=== PATIENT | male | born 1970 | race Caucasian/White ===

== ENCOUNTER 2025-08-10 09:11 | Inpatient (IN) | payer OTHER ==
[~2025-08-10] VITALS: Ht 175.3 cm; Wt 79.0 kg
[2025-08-10 09:29] VITALS: PULSE 76; RESP 14; O2SAT 97
--- NOTE | 2025-08-10 09:29 | ED.PDOC ---
History of Present Illness HPI Comments 54-year-old male presents to the ED via EMS for an evaluation of multiple complaints. Patient is coming from the skilled nursing center, in which he has been at for the past 2 weeks. Patient reports that he developed some tremors x1 week in his associated with generalized symptoms that include some abdominal pain, shortness of breath, nausea, visual and auditory hallucinations. EMS reports that patient thought he was on the top bunk today, states he jumped off but correctional supervisor lieutenant states that he was found on the floor in the he was actually sleeping on the bottom bunk. Patient was started on Keppra yesterday at the facility due to his tremors but has no known seizures in the past. Patient admits to previous history of alcohol and possible drug use, states since he has been held at the skilled nursing center he has not had any substance or alcohol. At this time patient is alert and oriented x4. Chief Complaint: Tremors Time Seen by MD: 09:17 Reviewed Notes: Nurses Notes, Coil Maker Notes, Medications, Allergies Allergies: Coded Allergies: NO KNOWN ALLERGIES (Unverified , 08/10/25) Information Source: Patient, Law Enforcement, Emergency Med Personnel Mode of Arrival: EMS Timing: Weeks (1) Past Medical History PAST MEDICAL HISTORY: Denies Surgical History: Denies all surgeries Family History Family History: Reviewed,noncontributory to illness Social History Smoker: Non-Smoker Alcohol: Heavy Drugs: Unknown Lives In: Other (skilled nursing center ) Constitutional: reports: malaise; denies: chills, diaphoresis, fatigue, fever, sweats, weakness, others EENTM: denies: blurred vision, double vision, ear bleeding, ear discharge, ear drainage, ear pain, ear ringing, eye pain, eye redness, hearing loss, mouth pain, mouth swelling, nasal discharge, nose bleeding, nose congestion, nose pain, photophobia, tearing, throat pain, throat swelling, voice changes, others Respiratory: denies: cough, hemoptysis, orthopnea, SOB at rest, shortness of breath, SOB with excertion, stridor, wheezing, others Cardiovascular: denies: chest pain, dizzy spells, diaphoresis, Dyspnea on exertion, edema, irregular heart beat, left arm pain, lightheadedness, palpi tations, PND, syncope, others Gastrointestinal: reports: abdominal pain, nausea; denies: abdomen distended, blood streaked bowels, constipated, diarrhea, dysphagia, difficulty swallowing, hematemesis, melena, poor appetite, poor fluid intake, rectal bleeding, rectal pain, vomiting, others Genitourinary: denies: burning, dysuria, flank pain, frequency, hematuria, incontinence, penile discharge, penile sore, pain, testicle pain, testicle swelling, urgency, others Neurological: reports: tremors; denies: dizziness, fainting, headache, left sided numbness, left sided weakness, numbness, paresthesia, pre-existing deficit, right sided numbness, right sided weakness, seizure, speech problems, tingling, weakness, others Musculoskeletal: denies: back pain, gout, joint pain, joint swelling, muscle pain, muscle stiffness, neck pain, others Integumetry: denies: bruises, change in color, change in hair/nails, dryness, laceration, lesions, lumps, rash, wounds, others Allergic/Immunocompromised: denies: Difficulty Healing, Frequent Infections, Hives, Itching, others Hematologic/Lymphatic: denies: anemia, blood clots, easy bleeding, easy bruising, swollen glands, others Endocrine: denies: excessive hunger, excessive sweating, excessive thirst, excessive urination, flushing, intolerance to cold, intolerance to heat, unexplained weight gain, unexplained weight loss, others Psychiatric: denies: anxiety, bipolar disorder, depression, hopeless, panic disorder, schizophrenia, sleepless, suicidal, others All Other Systems: Reviewed and Negative Physical Exam General Appearance: Moderate Distress HEENT: Normal ENT Inspection, Pharynx Normal, TMs Normal Neck: Full Range of Motion, Non-Tender, Normal, Normal Inspection Respiratory: Chest Non-Tender, Lungs Clear, No Accessory Muscle Use, No Respiratory Distress, Normal Breath Sounds Cardiovascular: No Edema, No JVD, No Murmur, No Gallop, Normal Peripheral Pulses, Regular Rate/Rhythm Breast Exam: Deferred Gastrointestinal: No Organomegaly, Non Tender, No Pulsatile Mass, Normal Bowel Sounds, Soft Genitalia: Deferred Pelvic: Deferred Rectal: Deferred Extremities: No calf tenderness, Normal capillary refill, Normal inspection, Normal range of motion, Non-tender, No pedal edema Musculoskeletal : Apperance: Normal Neurologic: Alert, ranch hand II-XII nml as Tested, No Motor Deficits, Normal Affect, Normal Mood, No Sensory Deficits Cerebellar Function: NOT DONE Reflexes: NOT DONE Skin: Dry, Normal Color, Warm Peripheral Pulses: 3+ Radial (R), 3+ Radial (L) Lymphatic: No Adenopathy Was a procedure done? Was a procedure done?: No Differential Dx Considerations may include: Alcohol withdrawal, substance withdrawal, dehydration, electrolyte imbalance, thiamine deficiency X-Ray, Labs, Meds, VS Vital Signs Date Time Temp Pulse Resp B/P (MAP) Pulse Ox O2 Delivery O2 Flow Rate FiO2 08/10/25 11:45 98.1 59 16 130/82 (98) 98 98.1 08/10/25 09:29 76 14 97 Nasal Cannula* 2 28 08/10/25 09:29 98.6 76 14 126/73 (90) 96 98.6 08/10/25 09:16 98.8 74 18 125/82 99 98.8 Lab Test 08/10/25 10:20 Range/Units White Blood Count 5.4 4.4-10.8 10^3/uL Red Blood Count 4.31 L 4.5-5.90 10^6/uL Hemoglobin 14.1 13.5-17.5 g/dL Hematocrit 39.8 L 41.0-53.0 % Mean Corpuscular Volume 92.2 80.0-100.0 fL Mean Corpuscular Hemoglobin 32.7 H 28.0-32.0 pg Mean Corpuscular Hemoglobin Concent 35.5 32.0-36.0 g/dL Red Cell Distribution Width 21.2 H 11.8-14.3 % Platelet Count 54 L 140-450 10^3/uL Mean Platelet Volume 7.7 6.9-10.8 fL Neutrophils (%) (Auto) 84.4 H 37.0-80.0 % Lymphocytes (%) (Auto) 7.2 L 10.0-50.0 % Monocytes (%) (Auto) 7.9 0.0-12.0 % Eosinophils (%) (Auto) 0.0 0.0-7.0 % Basophils (%) (Auto) 0.5 0.0-2.0 % Neutrophils # (Auto) 4.5 1.6-8.6 10 ^3/uL Lymphocytes # (Auto) 0.4 0.4-5.4 10 ^3/uL Monocytes # (Auto) 0.4 0-1.3 10 ^3/uL Eosinophils # (Auto) 0 0-0.8 10 ^3/uL Basophils # (Auto) 0 0-0.2 10 ^3/uL Nucleated Red Blood Cells 0.1 % Sodium Level 137 136-145 mmol/L Potassium Level 4.1 3.5-5.1 mmol/L Chloride Level 100 98-107 mmol/L Carbon Dioxide Level 26 20-31 mmol/L Anion Gap 11 5-15 Blood Urea Nitrogen 13 9-23 mg/dL Creatinine 0.82 0.700-1.30 mg/dL Glomerular Filtration Rate Calc 104 >90 mL/min BUN/Creatinine Ratio 15.9 10.0-20.0 Serum Glucose 105 74-106 mg/dL Calcium Level 9.7 8.7-10.4 mg/dL Current Medications Medications (Trade) Dose Ordered Sig/Hannah Route Start Time Stop Time Status Last Admin Sodium Chloride 1,000 ml @ 1,000 mls/hr Q1H ONCE IV 08/10/25 10:15 08/10/25 11:14 DC 08/10/25 11:27 Sodium Chloride 1,000 ml @ 150 mls/hr Q6H40M ONCE IV 08/10/25 10:15 08/10/25 16:54 08/10/25 12:34 Lorazepam (Ativan Inj) 1 mg ONCE ONCE IV 08/10/25 10:15 08/10/25 10:16 DC 08/10/25 11:27 Patient alert. Came in because of shaking. Alcohol withdrawal. Vitals stable. Establish intravenous access. Was given fluids. Was given Ativan. WBC within normal limits. Placed on oxygen. Explained to the patient. Continue monitoring. Time of 1ST Reevaluation: 09:27 Reevaluation 1ST: Unchanged Patient Education/Counseling: Diagnosis, Treatment, Prognosis Family Education/Counseling: No Family Present SEPSIS Sepsis Screen Date sepsis recognized/suspect: Aug 10, 2025 Time Sepsis recognized/suspect: 920 Recent Procedure: No On Antibiotic Therapy: No Respiratory Rate >20: No Heart Rate >90: No Temp<36 C (96.8 F) or >38.3 C: No SBP <90 or MAP <65 mmHG: No New Acute Mental Status Change: No Is the patient on CPAP, BIPAP,: No Physician Orders Sodium Chloride 0.9% (08/10/25 10:15) Vital Signs Date Time Temp Pulse Resp B/P (MAP) Pulse Ox O2 Delivery O2 Flow Rate FiO2 08/10/25 11:45 98.1 59 16 130/82 (98) 98 98.1 08/10/25 09:29 76 14 97 Nasal Cannula* 2 08/10/25 09:29 98.6 76 14 126/73 (90) 96 98.6 08/10/25 09:16 98.8 74 18 125/82 99 98.8 Laboratory Tests Test 08/10/25 10:20 White Blood Count 5.4 10^3/uL (4.4-10.8) Medications Medications Dose Ordered Sig/Hannah Route Start Time Stop Time Status Last Admin Dose Admin Lorazepam 1 mg ONCE ONCE IV 08/10/25 10:15 08/10/25 10:16 DC 08/10/25 11:27 Sodium Chloride 1,000 ml @ 150 mls/hr Q6H40M ONCE IV 08/10/25 10:15 08/10/25 16:54 08/10/25 12:34 Sodium Chloride 1,000 ml @ 1,000 mls/hr Q1H ONCE IV 08/10/25 10:15 08/10/25 11:14 DC 08/10/25 11:27 Departure 1 Departure Time of Disposition: 14:22 Impression: Primary Impression: Alcohol withdrawal Qualified Codes: F10.930 - Alcohol use, unspecified with withdrawal, uncom plicated Disposition: ADMITTED INPATIENT Admit to: Med Surg Condition: Guarded Critical Care Note Critical Care Time?: Yes (90 min-critical care time only) Stability Stability form required: No I personally scribed for REID BLACKBURN MD ([email or web address]) on 08/10/25 at 09:29. Electronically submitted by Christin Lopez ([facility]). REID BLACKBURN MD Aug 10, 2025 09:29
[2025-08-10 10:48] LABS: Hematocrit 39.8 % (41.0-53.0); Hemoglobin 14.1 g/dL (13.5-17.5); Mean Corpuscular Hemoglobin 32.7 pg (28.0-32.0); Mean Corpuscular Volume 92.2 fL (80.0-100.0); Nucleated Red Blood Cells % 0.1 %
[2025-08-10 11:02] LABS: Chloride 100 mmol/L (98-107); Potassium 4.1 mmol/L (3.5-5.1); Sodium 137 mmol/L (136-145)
[2025-08-10 11:03] LABS: Anion Gap 11 (5-15); Calcium 9.7 mg/dL (8.7-10.4); Carbon Dioxide 26 mmol/L (20-31)
[2025-08-10 11:08] LABS: BUN/Creatinine Ratio 15.9 (10.0-20.0); Blood Urea Nitrogen 13 mg/dL (9-23); Glucose 105 mg/dL (74-106)
[2025-08-10] MEDS: SODIUM CHLORIDE 0.9% 1,000 ML IV ONE ×4 (11:27→16:35)
[2025-08-10] MEDS: LORazepam 2MG/ML-1ML VIAL IV ONE (11:27)
[2025-08-10] MEDS ORDERED: ONDANSETRON HCL 4 MG/2 ML VIAL IV PRN (16:00)
[2025-08-10] MEDS ORDERED: DOCUSATE SOD 100 MG CAP PO PRN (16:00)
[2025-08-10] MEDS ORDERED: ACETAMINOPHEN 325 MG TAB PO PRN (16:00)
[2025-08-10] MEDS: THIAMINE HCL 100 MG TAB PO ONE (16:34)
[2025-08-10] MEDS: FOLIC ACID 1 MG TAB PO ONE (16:34)
[2025-08-10] MEDS: MULTIPLE VITAMINS W/ MINERALS TAB PO ONE (16:34)
[2025-08-10] MEDS: HYDROcodone-ACET 5/325MG TAB PO PRN (17:20)
--- NOTE | 2025-08-10 17:41 | DVHHP2 ---
History of Present Illness Reason for Visit: Tremors History of Present Illness Gamaliel Bolanos is a 54-year-old male with unclear past medical history, he denies any past medical history or surgical history. It is difficult to evaluate if patient is altered or just refusing to answer questions. He has been at the alf center for 2 weeks. He was brought to the hospital due to tremors, shortness of breath, abdominal pain, and hallucinations. Patient can remember that he was started on a seizure medication, but does not know what one. Past Surgical History: None ALCOHOL: heavy Lives: Other ([facility]) Review of Systems Constitutional: No: Fever, Chills, Sweats, Weakness, Malaise, Other Eyes: No: Pain, Vision change, Conjunctivae inflammation, Eyelid inflammation, Other, Redness ENT: No: Ear pain, Ear discharge, Nose pain, Nose discharge, Nose congestion, Mouth pain, Mouth swelling, Throat pain, Throat swelling, Other Respiratory: No: Cough, Dry, Shortness of breath, SOB with excertion, Wheezing, Hemoptysis, Pleuritic Pain, Sputum, Wheezing, Other Cardiovascular: No: Chest Pain, Palpitations, Orthopnea, Paroxysmal Noc. Dyspnea, Edema, Lt Headedness, Other Gastrointestinal: No: Nausea, Vomiting, Abdominal Pain, Diarrhea, Constipation, Melena, Hematochezia, Other Genitourinary: No Dysuria, No Frequency, No Incontinence, No Hematuria, No Retention, No Other Musculoskeletal: No: other, neck pain, shoulder pain, arm pain, back pain, hand pain, leg pain, foot pain Skin: No: Rash, Lesions, Jaundice, Bruising, Other Neurological: Weakness, Incoordination, Other (tremors); No: Numbness, Change in speech, Confusion, Seizures Allergies: Coded Allergies: NO KNOWN ALLERGIES (Unverified , 08/10/25) Medications Current Medications Medications Dose Ordered Sig/Hannah Route Start Time Stop Time Status Last Admin Dose Admin Acetaminophen/ Hydrocodone Bitart 1 tab Q4HP PRN PO 08/10/25 16:00 Ondansetron HCl 4 mg Q4HP PRN IV 08/10/25 16:00 Docusate Sodium 100 mg BIDPRN PRN PO 08/10/25 16:00 Enoxaparin Sodium 40 mg DAILY SC 08/11/25 10:00 UNV Acetaminophen 650 mg Q6HP PRN PO 08/10/25 16:00 Chlordiazepoxide HCl 50 mg Q8H PO 08/10/25 16:00 08/11/25 08:01 Chlordiazepoxide HCl 50 mg Q12HR PO 08/11/25 10:00 08/11/25 22:01 Chlordiazepoxide HCl 25 mg Q12HR PO 08/12/25 10:00 08/12/25 22:01 Chlordiazepoxide HCl 25 mg QAM PO 08/13/25 07:00 08/13/25 07:01 Thiamine HCl 100 mg DAILY PO 08/11/25 10:00 Multivitamins/ Minerals 1 tab DAILY PO 08/11/25 10:00 Folic Acid 1 mg DAILY PO 08/11/25 10:00 Exam Vital Signs Vital Signs Date Time Temp Pulse Resp B/P (MAP) Pulse Ox O2 Delivery O2 Flow Rate FiO2 08/10/25 14:59 98.4 66 18 137/80 (99) 94 98.4 08/10/25 09:29 Nasal Cannula* 2 28 General Appearance: Alert, Other (Oriented x 2, ) HEENT: Atraumatic, PERRLA Respiratory: Clear to auscultation, Normal air movement Cardiovascular: Regular rate, Normal S1, Normal S2, No murmurs Abdominal: Normal bowel sounds, Soft, No tenderness Extremities: No clubbing, No cyanosis, No edema, Other (tremors) Skin: No breakdown (left wrist abrasion) Neuro: Other Psych/Mental Status: Other (Appears agitated, unclear if he is altered or unwilling to answer questions) Labs/Xrays Labs Test 08/10/25 10:20 Range/Units White Blood Count 5.4 4.4-10.8 10^3/uL Red Blood Count 4.31 L 4.5-5.90 10^6/uL Hemoglobin 14.1 13.5-17.5 g/dL Hematocrit 39.8 L 41.0-53.0 % Mean Corpuscular Volume 92.2 80.0-100.0 fL Mean Corpuscular Hemoglobin 32.7 H 28.0-32.0 pg Mean Corpuscular Hemoglobin Concent 35.5 32.0-36.0 g/dL Red Cell Distribution Width 21.2 H 11.8-14.3 % Platelet Count 54 L 140-450 10^3/uL Mean Platelet Volume 7.7 6.9-10.8 fL Neutrophils (%) (Auto) 84.4 H 37.0-80.0 % Lymphocytes (%) (Auto) 7.2 L 10.0-50.0 % Monocytes (%) (Auto) 7.9 0.0-12.0 % Eosinophils (%) (Auto) 0.0 0.0-7.0 % Basophils (%) (Auto) 0.5 0.0-2.0 % Neutrophils # (Auto) 4.5 1.6-8.6 10 ^3/uL Lymphocytes # (Auto) 0.4 0.4-5.4 10 ^3/uL Monocytes # (Auto) 0.4 0-1.3 10 ^3/uL Eosinophils # (Auto) 0 0-0.8 10 ^3/uL Basophils # (Auto) 0 0-0.2 10 ^3/uL Nucleated Red Blood Cells 0.1 % Sodium Level 137 136-145 mmol/L Potassium Level 4.1 3.5-5.1 mmol/L Chloride Level 100 98-107 mmol/L Carbon Dioxide Level 26 20-31 mmol/L Anion Gap 11 5-15 Blood Urea Nitrogen 13 9-23 mg/dL Creatinine 0.82 0.700-1.30 mg/dL Glomerular Filtration Rate Calc 104 >90 mL/min BUN/Creatinine Ratio 15.9 10.0-20.0 Serum Glucose 105 74-106 mg/dL Calcium Level 9.7 8.7-10.4 mg/dL SEPSIS Sepsis Screen Date sepsis recognized/suspect: Aug 10, 2025 Time Sepsis recognized/suspect: 928 Recent Procedure: No On Antibiotic Therapy: No Respiratory Rate >20: No Heart Rate >90: No Temp<36 C (96.8 F) or >38.3 C: No SBP <90 or MAP <65 mmHG: No New Acute Mental Status Change: No Is the patient on CPAP, BIPAP,: No Physician Orders Sodium Chloride 0.9% (08/10/25 10:15) Admit (08/10/25 16:00) Code Status (08/10/25 16:00) Hydrocodone-Acet 5/325mg Tab (Stigler 5/32 (08/10/25 16:00) Ondansetron Hcl (Zofran) (08/10/25 16:00) Docusate Sodium Capsule (Colace Capsule) (08/10/25 16:00) Enoxaparin Sodium (Lovenox) (08/11/25 10:00) Complete Blood Count (08/11/25 04:00) Comprehensive Metabolic Panel (08/11/25 04:00) Condition: Serious (08/10/25 16:00) Acetaminophen Tablet (Tylenol Tablet) (08/10/25 16:00) Chlordiazepoxide Hcl Capsule (Librium Ca (08/10/25 16:00) Chlordiazepoxide Hcl Capsule (Librium Ca (08/11/25 10:00) Chlordiazepoxide Hcl Capsule (Librium Ca (08/12/25 10:00) Chlordiazepoxide Hcl Capsule (Librium Ca (08/13/25 07:00) Sodium Chloride 0.9% (08/10/25 16:00) Sodium Chloride 0.9% (08/10/25 16:00) Thiamine Tab (08/11/25 10:00) Multiple Vitamin W Mineral Tab (Mvi W/ M (08/11/25 10:00) Folic Acid Tablet (08/11/25 10:00) Vital Signs Date Time Temp Pulse Resp B/P (MAP) Pulse Ox O2 Delivery O2 Flow Rate FiO2 08/10/25 14:59 98.4 66 18 137/80 (99) 94 98.4 08/10/25 13:15 98.3 65 16 126/77 (93) 95 98.3 08/10/25 11:45 98.1 59 16 130/82 (98) 98 98.1 08/10/25 09:29 76 14 97 Nasal Cannula* 2 28 08/10/25 09:29 98.6 76 14 126/73 (90) 96 98.6 08/10/25 09:16 98.8 74 18 125/82 99 98.8 Laboratory Tests Test 08/10/25 10:20 White Blood Count 5.4 10^3/uL (4.4-10.8) Medications Medications Dose Ordered Sig/Hannah Route Start Time Stop Time Status Last Admin Dose Admin Lorazepam 1 mg ONCE ONCE IV 08/10/25 10:15 08/10/25 10:16 DC 08/10/25 11:27 1 MG Sodium Chloride 1,000 ml @ 150 mls/hr Q6H40M ONCE IV 08/10/25 10:15 08/10/25 16:54 08/10/25 12:34 150 MLS/HR Sodium Chloride 1,000 ml @ 1,000 mls/hr Q1H ONCE IV 08/10/25 10:15 08/10/25 11:14 DC 08/10/25 11:27 1,000 MLS/HR Assessment/Plan Assessment/Plan Assessment: Alcohol withdrawal, Tremors, Plan: Admit to Med-Surg, Tapering Librium, IV hydration, PO supplements for ETOH withdrawal, Seizure precautions, UA, UDS, Plan discussed with: Patient My Orders Orders - RONNELL LAY Procedure Category Date Status Time Admit ADMIT 08/10/25 Transmitted 16:00 Code Status CODE 08/10/25 Transmitted 16:00 Hydrocodone-Acet PHA 08/10/25 In Process 5/325mg Tab (Stigler 16:00 Ondansetron Hcl PHA 08/10/25 In Process (Zofran) 16:00 Docusate Sodium PHA 08/10/25 In Process Capsule (Colace 16:00 Enoxaparin Sodium PHA 08/11/25 Logged (Lovenox) 10:00 Complete Blood Count LAB 08/11/25 Verified 04:00 Comprehensive LAB 08/11/25 Verified Metabolic Panel 04:00 Condition: Serious GUERLINE 08/10/25 In Process 16:00 Acetaminophen Tablet PHA 08/10/25 In Process (Tylenol Tablet) 16:00 Chlordiazepoxide Hcl PHA 08/10/25 In Process Capsule (Librium Ca 16:00 Chlordiazepoxide Hcl PHA 08/11/25 In Process Capsule (Librium Ca 10:00 Chlordiazepoxide Hcl PHA 08/12/25 In Process Capsule (Librium Ca 10:00 Chlordiazepoxide Hcl PHA 08/13/25 In Process Capsule (Librium Ca 07:00 Sodium Chloride 0.9% PHA 08/10/25 In Process 16:00 Sodium Chloride 0.9% PHA 08/10/25 In Process 16:00 Thiamine Tab PHA 08/11/25 In Process 10:00 Multiple Vitamin W PHA 08/11/25 In Process Mineral Tab (Mvi W/ M 10:00 Folic Acid Tablet PHA 08/11/25 In Process 10:00 Date of Service: Aug 10, 2025 Billing Provider: RONNELL LAY Common Visit Codes: [id number] INP/OBS CARE (MOD) RONNELL LAY Aug 10, 2025 17:41
--- NOTE | 2025-08-10 18:06 | DVH ---
CT HEAD WITHOUT CONTRAST INDICATION: ALOC, COMPARISON: None TECHNIQUE: CT of the head without intravenous contrast. RADIATION DOSE: CTDIvol: 55.98 mGy, DLP: 897.45 mGy*cm FINDINGS: There is no evidence of acute intracranial hemorrhage, extra-axial collection, mass effect, midline shift, herniation or hydrocephalus. The ventricles, sulci and cisterns are age appropriate. The isaac-white differentiation is intact. The visualized paranasal sinuses and mastoid air cells are clear. The surrounding soft tissues and osseous structures are unremarkable. IMPRESSION: 1. No evidence of acute intracranial hemorrhage, mass effect or hydrocephalus.
[2025-08-10 19:43] VITALS: PULSE 88; RESP 18; O2SAT 97
[2025-08-10 21:58] VITALS: PULSE 63; RESP 18; O2SAT 96
[2025-08-10 22:00] VITALS: BP 141/89; PULSE 61; RESP 18; O2SAT 96
[2025-08-11] VITALS (7 sets, daily range): BP systolic 97–159; BP diastolic 60–95; PULSE 66–108; RESP 14–20; TEMP 97.3–98.3; O2SAT 94–98
[2025-08-11] MEDS: LORazepam 2MG/ML-1ML VIAL IV PRN (02:09)
[2025-08-11 06:10] LABS: Nucleated Red Blood Cells % 0.1 %
[2025-08-11 06:13] LABS: Hematocrit 38.2 % (41.0-53.0); Hemoglobin 13.7 g/dL (13.5-17.5); Mean Corpuscular Hemoglobin 33.7 pg (28.0-32.0); Mean Corpuscular Volume 93.8 fL (80.0-100.0)
[2025-08-11 06:24] LABS: Albumin 4.4 g/dL (3.2-4.8); Alkaline Phosphatase 49 U/L (46-116); Anion Gap 19 (5-15); BUN/Creatinine Ratio 12.3 (10.0-20.0); Blood Urea Nitrogen 13 mg/dL (9-23); Calcium 10.1 mg/dL (8.7-10.4); Chloride 100 mmol/L (98-107); Potassium 3.5 mmol/L (3.5-5.1); Sodium 139 mmol/L (136-145); Total Protein 7.6 g/dL (5.7-8.2)
[2025-08-11 06:25] LABS: Alanine Aminotransferase 76 U/L (7-40); Bilirubin, Total 3.0 mg/dL (0.2-1.0); Carbon Dioxide 20 mmol/L (20-31); Glucose 61 mg/dL (74-106)
[2025-08-11] MEDS: ENOXAPARIN SOD 40 MG/0.4 ML SYRINGE SC SCH (10:00)
[2025-08-11] MEDS: THIAMINE HCL 100 MG TAB PO SCH (10:34)
[2025-08-11] MEDS: MULTIPLE VITAMINS W/ MINERALS TAB PO SCH (10:35)
[2025-08-11] MEDS: FOLIC ACID 1 MG TAB PO SCH (10:35)
--- NOTE | 2025-08-11 14:37 | DVHPN2 ---
Subjective 54-year-old male was [facility] in from shelter center with the tremors and hallucination for last two weeks. Changes from previous H/P or p: No Changes Eyes: No Pain, No Vision change, No Conjunctivae inflammation, No Eyelid inflammation, No Other, No Redness ENT: No Ear pain, No Ear discharge, No Nose pain, No Nose discharge, No Nose congestion, No Mouth pain, No Mouth swelling, No Throat pain, No Throat swelling, No Other Cardiovascular: No Chest Pain, No Palpitations, No Orthopnea, No Paroxysmal Noc. Dyspnea, No Edema, No Lt Headedness, No Other Respiratory: No Cough, No Dry, No Shortness of breath, No SOB with excertion, No Wheezing, No Hemoptysis, No Pleuritic Pain, No Sputum, No Other Gastrointestinal: No Nausea, No Vomiting, No Abdominal Pain, No Diarrhea, No Constipation, No Melena, No Hematochezia, No Other Genitourinary: No Dysuria, No Frequency, No Incontinence, No Hematuria, No Retention, No Other Musculoskeletal: No other, No neck pain, No shoulder pain, No arm pain, No back pain, No hand pain, No leg pain, No foot pain Skin: No Rash, No Lesions, No Jaundice, No Bruising, No Other Objective Vitals Vital Signs Date Time Temp Pulse Resp B/P (MAP) Pulse Ox O2 Delivery O2 Flow Rate FiO2 08/11/25 13:00 97.3 108 14 134/74 (94) 96 97.3 08/11/25 08:00 Room Air* 0 21 Intake/Output Intake and Output 08/11/25 06:59 Intake Total 1050 ml Output Total 100 ml Balance 950 ml Intake Oral 50 ml IV Total 1000 ml Output Urine Total 100 ml Exam HEENT pupils are reactive Neck is supple CV is S1-S2 regular rate and rhythm Diminished breath sounds bases GI positive bowel sound Extremity no edema 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 Medications Current Medications Medications Dose Ordered Sig/Hannah Route Start Time Stop Time Status Last Admin Dose Admin Acetaminophen/ Hydrocodone Bitart 1 tab Q4HP PRN PO 08/10/25 16:00 08/11/25 00:36 1 TAB Ondansetron HCl 4 mg Q4HP PRN IV 08/10/25 16:00 Docusate Sodium 100 mg BIDPRN PRN PO 08/10/25 16:00 Enoxaparin Sodium 40 mg DAILY SC 11/29/25 10:00 Acetaminophen 650 mg Q6HP PRN PO 08/10/25 16:00 Chlordiazepoxide HCl 50 mg Q12HR PO 08/11/25 10:00 08/11/25 22:01 08/11/25 10:35 50 MG Chlordiazepoxide HCl 25 mg Q12HR PO 08/12/25 10:00 08/12/25 22:01 Chlordiazepoxide HCl 25 mg QAM PO 08/13/25 07:00 08/13/25 07:01 Thiamine HCl 100 mg DAILY PO 08/11/25 10:00 Hold 08/11/25 10:34 100 MG Multivitamins/ Minerals 1 tab DAILY PO 08/11/25 10:00 Hold 08/11/25 10:35 1 TAB Folic Acid 1 mg DAILY PO 08/11/25 10:00 Hold 08/11/25 10:35 1 MG Lorazepam 1 mg Q2HP PRN IV 08/10/25 21:30 08/11/25 13:04 1 MG Folic Acid 1 mg/ Multivitamins 10 ml/Magnesium Sulfate 8 meq/ Thiamine HCl 100 mg/Dextrose 1,013.2 ml @ 125.001 mls/hr DAILY@1800 INJ 08/11/25 18:00 08/14/25 17:00 Laboratory Results Laboratory Tests 08/11/25 05:14 Chemistry Test 08/11/25 05:14 Albumin 4.4 g/dL (3.2-4.8) Calcium Level 10.1 mg/dL (8.7-10.4) Total Protein 7.6 g/dL (5.7-8.2) LFT Test 08/11/25 05:14 Alanine Aminotransferase (ALT) 76 U/L (7-40) H Alkaline Phosphatase 49 U/L (46-116) Aspartate Amino Transferase (AST) 108 U/L (13-40) H Total Bilirubin 3.0 mg/dL (0.2-1.0) H Microbiology Microbiology Date/Time Source Procedure Growth Status 08/10/25 22:46 Nose MRSA Screen - Final Complete Assessment/Plan Assessment/Plan 54-year-old male with a known history of chronic alcoholism presented to the hospital with a multiple complaints including nausea tremors found to have 1. Alcohol withdrawal syndrome/watch for delirium tremens 2. Chronic alcoholism 3. Transaminitis -continue banana bag, follow CIWA protocol -aspiration precautions. Plan discussed with: Patient My Orders Orders - DANIEL GAMBLE MD Procedure Category Date Status Time Cardiac DIET 08/11/25 Transmitted Diet-2gna,Lofat,Lochol Lunch Folic Acid... PHA 08/11/25 In Process 18:00 Problem List: (1) Alcohol withdrawal Date of Service: Aug 11, 2025 Billing Provider: DANIEL GAMBLE MD Common Visit Codes: [id number] INP/OBS CARE(HIGH) DANIEL GAMBLE MD Aug 11, 2025 14:37
[2025-08-11] MEDS: FOLIC ACID 1 MG, MULTIPLE VITAMIN 10 ML, MAGNESIUM SULF SDV 50% 8 MEQ, THIAMINE INJ 100... INJ SCH (18:10)
[2025-08-12] VITALS (8 sets, daily range): BP systolic 127–154; BP diastolic 67–109; PULSE 90–125; RESP 16–20; TEMP 97.9–99.1; O2SAT 95–98
--- NOTE | 2025-08-12 15:40 | DVHPN2 ---
Subjective Patient is more awake today. Tolerating liquid diet. Changes from previous H/P or p: No Changes Eyes: No Pain, No Vision change, No Conjunctivae inflammation, No Eyelid inflammation, No Other, No Redness ENT: No Ear pain, No Ear discharge, No Nose pain, No Nose discharge, No Nose congestion, No Mouth pain, No Mouth swelling, No Throat pain, No Throat swelling, No Other Cardiovascular: No Chest Pain, No Palpitations, No Orthopnea, No Paroxysmal Noc. Dyspnea, No Edema, No Lt Headedness, No Other Respiratory: No Cough, No Dry, No Shortness of breath, No SOB with excertion, No Wheezing, No Hemoptysis, No Pleuritic Pain, No Sputum, No Other Gastrointestinal: No Nausea, No Vomiting, No Abdominal Pain, No Diarrhea, No Constipation, No Melena, No Hematochezia, No Other Genitourinary: No Dysuria, No Frequency, No Incontinence, No Hematuria, No Retention, No Other Musculoskeletal: No other, No neck pain, No shoulder pain, No arm pain, No back pain, No hand pain, No leg pain, No foot pain Skin: No Rash, No Lesions, No Jaundice, No Bruising, No Other Objective Vitals Vital Signs Date Time Temp Pulse Resp B/P (MAP) Pulse Ox O2 Delivery O2 Flow Rate FiO2 08/12/25 13:00 98.2 100 16 139/92 (108) 97 98.2 08/12/25 08:00 Room Air* 0 21 Intake/Output Intake and Output 08/12/25 07:00 Intake Total 600 ml Balance 600 ml Intake Oral 600 ml # Voids 10 Exam HEENT pupils are reactive Neck is supple CV is S1-S2 regular rate and rhythm Diminished breath sounds bases GI positive bowel sound Extremity no edema [employer] does not follow commands Medications Current Medications Medications Dose Ordered Sig/Hannah Route Start Time Stop Time Status Last Admin Dose Admin Acetaminophen/ Hydrocodone Bitart 1 tab Q4HP PRN PO 08/10/25 16:00 08/12/25 01:15 1 TAB Ondansetron HCl 4 mg Q4HP PRN IV 08/10/25 16:00 Docusate Sodium 100 mg BIDPRN PRN PO 08/10/25 16:00 Enoxaparin Sodium 40 mg DAILY SC 08/11/25 10:00 Acetaminophen 650 mg Q6HP PRN PO 08/10/25 16:00 Chlordiazepoxide HCl 25 mg Q12HR PO 08/12/25 10:00 08/12/25 10:00 Cancel Thiamine HCl 100 mg DAILY PO 08/11/25 10:00 Hold 08/11/25 10:34 100 MG Multivitamins/ Minerals 1 tab DAILY PO 08/11/25 10:00 Hold 08/11/25 10:35 1 TAB Folic Acid 1 mg DAILY PO 08/11/25 10:00 Hold 08/11/25 10:35 1 MG Lorazepam 1 mg Q2HP PRN IV 08/10/25 21:30 08/12/25 10:58 1 MG Folic Acid 1 mg/ Multivitamins 10 ml/Magnesium Sulfate 8 meq/ Thiamine HCl 100 mg/Dextrose 1,013.2 ml @ 125.001 mls/hr DAILY@1800 INJ 08/11/25 18:00 08/14/25 17:00 08/11/25 18:10 125.001 MLS/HR Chlordiazepoxide HCl 50 mg Q6HR PO 08/12/25 04:45 08/12/25 10:58 50 MG Laboratory Results Laboratory Tests 08/11/25 05:14 Microbiology Microbiology Date/Time Source Procedure Growth Status 08/10/25 22:46 Nose MRSA Screen - Final Complete Assessment/Plan Assessment/Plan 54-year-old male with a known history of chronic alcoholism presented to the hospital with a multiple complaints including nausea tremors found to have 1. Alcohol withdrawal syndrome/watch for delirium tremens 2. Chronic alcoholism 3. Transaminitis -continue banana bag, follow CIWA protocol -aspiration precautions. -diet as tolerated. Plan discussed with: Patient, Other Date of Service: Aug 12, 2025 Billing Provider: DANIEL GAMBLE MD Common Visit Codes: [id number] INP/OBS CARE(HIGH) DANIEL GAMBLE MD Aug 12, 2025 15:40
[2025-08-13] VITALS (8 sets, daily range): BP systolic 110–146; BP diastolic 78–96; PULSE 71–98; RESP 16–20; TEMP 97.4–98.8; O2SAT 95–99
--- NOTE | 2025-08-13 15:23 | DVHPN2 ---
Reviewed: H&P Changes from previous H/P or p: No Changes General: Per HPI Eyes: No Pain, No Vision change, No Conjunctivae inflammation, No Eyelid inflammation, No Other, No Redness ENT: No Ear pain, No Ear discharge, No Nose pain, No Nose discharge, No Nose congestion, No Mouth pain, No Mouth swelling, No Throat pain, No Throat swelling, No Other Cardiovascular: No Chest Pain, No Palpitations, No Orthopnea, No Paroxysmal Noc. Dyspnea, No Edema, No Lt Headedness, No Other Respiratory: No Cough, No Dry, No Shortness of breath, No SOB with excertion, No Wheezing, No Hemoptysis, No Pleuritic Pain, No Sputum, No Other Gastrointestinal: No Nausea, No Vomiting, No Abdominal Pain, No Diarrhea, No Constipation, No Melena, No Hematochezia, No Other Genitourinary: No Dysuria, No Frequency, No Incontinence, No Hematuria, No Retention, No Other Musculoskeletal: No other, No neck pain, No shoulder pain, No arm pain, No back pain, No hand pain, No leg pain, No foot pain Skin: No Rash, No Lesions, No Jaundice, No Bruising, No Other Objective Vitals Vital Signs Date Time Temp Pulse Resp B/P (MAP) Pulse Ox O2 Delivery O2 Flow Rate FiO2 08/13/25 13:00 97.9 81 19 120/81 (94) 99 97.9 08/13/25 08:00 Room Air* 0 21 Intake/Output Intake and Output 08/13/25 07:00 Intake Total 700 ml Balance 700 ml Intake Oral 700 ml # Voids 7 Exam General Appearance: Alert, Other (Oriented x 2, ) HEENT: Atraumatic, PERRLA Respiratory: Clear to auscultation, Normal air movement Cardiovascular: Regular rate, Normal S1, Normal S2, No murmurs Abdominal: Normal bowel sounds, Soft, No tenderness Extremities: No clubbing, No cyanosis, No edema, Other (tremors) Skin: No breakdown (left wrist abrasion) Neuro: Other Psych/Mental Status: Other (Appears agitated, unclear if he is altered or unwilling to answer questions) Medications Current Medications Medications Dose Ordered Sig/Hannah Route Start Time Stop Time Status Last Admin Dose Admin Acetaminophen/ Hydrocodone Bitart 1 tab Q4HP PRN PO 08/10/25 16:00 08/12/25 20:04 1 TAB Ondansetron HCl 4 mg Q4HP PRN IV 08/10/25 16:00 Docusate Sodium 100 mg BIDPRN PRN PO 08/10/25 16:00 Enoxaparin Sodium 40 mg DAILY SC 08/11/25 10:00 Acetaminophen 650 mg Q6HP PRN PO 08/10/25 16:00 Chlordiazepoxide HCl 25 mg Q12HR PO 08/12/25 10:00 08/12/25 10:00 Cancel Lorazepam 1 mg Q2HP PRN IV 08/10/25 21:30 08/12/25 18:10 1 MG Chlordiazepoxide HCl 50 mg Q6HR PO 08/12/25 04:45 08/13/25 11:36 50 MG Trazodone HCl 25 mg QHSP PRN PO 08/12/25 18:30 Folic Acid 1 mg DAILY PO 08/14/25 10:00 Multivitamins 1 tab DAILY PO 08/14/25 10:00 Magnesium Oxide 400 mg DAILY PO 08/14/25 10:00 Thiamine HCl 100 mg DAILY PO 08/14/25 10:00 Laboratory Results Laboratory Tests 08/11/25 05:14 Microbiology Microbiology Date/Time Source Procedure Growth Status 08/10/25 22:46 Nose MRSA Screen - Final Complete Labs and/or images reviewed: Labs reviewed by me, Image(s) reviewed by me Assessment/Plan Assessment/Plan 54-year-old male with unclear past medical history, he denies any past medical history or surgical history. It is difficult to evaluate if patient is altered or just refusing to answer questions. [facility] He was brought to the hospital due to tremors, shortness of breath, abdominal pain, and hallucinations. Patient can remember that he was started on a seizure medication, but does not know what one. 08/13: Patient is swelling himself, he has been asked to use bedside urinal but does not compliant. It isn't clear what as patient is baseline. We will do more complete workup assuming this is not patient's baseline and he is suffering from some sort of encephalopathy. Acute toxic metabolic encephalopathy could be due to many causes but 1. Suspect remains alcohol possible Wernicke's encephalopathy. We will give IV thiamine 100 mg again, thereafter start D5 [id number] cc an hour continuous. Continue daily 200 p.o. thiamine,1 mg folic p.o.. We will complete workup with TSH, ammonia, trip antibody. Patient did ambulate today thus has potential of using bedside commode etc.. Patient's CIWA score is low, we will stop Librium p.o. Diagnosis: Acute toxic metabolic encephalopathy due to below Alcohol withdrawal possible Wernicke's encephalopathy possible Alcohol dependence Thrombocytopenia, likely due to chronic alcohol intoxication poisoning Transaminitis, alcoholic pattern Hyperbilirubinemia , due to below Acute alcoholic hepatitis likely Anion gap metabolic acidosis Plan: Unclear baseline, continue treatment thiamine and folic D5 half-normal saline Full liquid diet Aspiration precautions Stops CIWA protocol Continue daily ambulation, out of bed, Use bedside urinal at bedside commode Med surge Full code Plan discussed with: Patient My Orders Orders - PAO NOWAK MD Procedure Category Date Status Time Thiamine Tab PHA 08/14/25 Transmitted 10:00 Thyroid Stimulating LAB 08/13/25 Transmitted Hormone 15:12 Ammonia LAB 08/13/25 Transmitted 15:12 Complete Blood Count LAB 08/13/25 Transmitted 15:12 Comprehensive LAB 08/13/25 Transmitted Metabolic Panel 15:12 Treponema Pallidum LAB 08/13/25 Transmitted Antibody 15:12 Thiamine Inj PHA 08/13/25 Transmitted 15:15 D5w/Sod Chl 0.45% 09/14 PHA 08/13/25 Transmitted NS 18:00 Date of Service: Aug 13, 2025 Billing Provider: PAO NOWAK MD Common Visit Codes: [id number] INP/OBS CARE(HIGH) PAO NOWAK MD Aug 13, 2025 15:23
[2025-08-13] MEDS: THIAMINE 100mg/ml INJ (200mg/2ml VIAL) IV ONE (16:43)
[2025-08-13] MEDS: D5W/SOD CHL 0.45% 1,000 ML IV SCH (16:48)
[2025-08-13 17:13] LABS: Hematocrit 40.2 % (41.0-53.0); Hemoglobin 14.6 g/dL (13.5-17.5); Mean Corpuscular Hemoglobin 33.8 pg (28.0-32.0); Mean Corpuscular Volume 93.2 fL (80.0-100.0); Nucleated Red Blood Cells % 0.0 %
[2025-08-13 17:34] LABS: Albumin 4.5 g/dL (3.2-4.8); Anion Gap 14 (5-15); BUN/Creatinine Ratio 16.9 (10.0-20.0); Blood Urea Nitrogen 12 mg/dL (9-23); Calcium 9.9 mg/dL (8.7-10.4); Carbon Dioxide 24 mmol/L (20-31); Chloride 100 mmol/L (98-107); Glucose 94 mg/dL (74-106); Sodium 138 mmol/L (136-145); Total Protein 8.0 g/dL (5.7-8.2)
[2025-08-13] MEDS: MULTIPLE VITAMIN TAB PO ONE (17:49)
[2025-08-13] MEDS: MAGNESIUM OXIDE 400 MG TAB PO ONE (17:49)
[2025-08-13] MEDS: THIAMINE HCL 100 MG TAB PO ONE (17:49)
[2025-08-13] MEDS: FOLIC ACID 1 MG TAB PO ONE (17:49)
[2025-08-13 17:50] LABS: Alanine Aminotransferase 59 U/L (7-40); Alkaline Phosphatase 45 U/L (46-116); Bilirubin, Total 2.4 mg/dL (0.2-1.0); Potassium 3.1 mmol/L (3.5-5.1)
[2025-08-13] MEDS: POTASSIUM CHL 20 Meq TABLET PO ONE (20:42)
[2025-08-14 01:00] VITALS: BP 115/79; PULSE 75; RESP 16; TEMP 97.9; O2SAT 98
[2025-08-14 05:00] VITALS: BP 110/74; PULSE 67; RESP 18; TEMP 98.8; O2SAT 100
[2025-08-14 06:28] LABS: Albumin 4.0 g/dL (3.2-4.8); Anion Gap 11 (5-15); BUN/Creatinine Ratio 14.8 (10.0-20.0); Calcium 9.3 mg/dL (8.7-10.4); Carbon Dioxide 26 mmol/L (20-31); Chloride 102 mmol/L (98-107); Sodium 139 mmol/L (136-145); Total Protein 7.0 g/dL (5.7-8.2)
[2025-08-14 06:33] LABS: Alanine Aminotransferase 49 U/L (7-40); Alkaline Phosphatase 37 U/L (46-116); Bilirubin, Total 1.8 mg/dL (0.2-1.0); Blood Urea Nitrogen 9 mg/dL (9-23); Glucose 112 mg/dL (74-106); Potassium 2.6 mmol/L (3.5-5.1)
[2025-08-14 06:36] LABS: Hematocrit 36.1 % (41.0-53.0); Hemoglobin 13.0 g/dL (13.5-17.5); Mean Corpuscular Hemoglobin 33.4 pg (28.0-32.0); Mean Corpuscular Volume 92.9 fL (80.0-100.0); Nucleated Red Blood Cells % 0.2 %
[2025-08-14 08:00] VITALS: PULSE 80; RESP 19; O2SAT 95
[2025-08-14 09:00] VITALS: BP 116/73; PULSE 74; RESP 18; TEMP 98; O2SAT 98
[2025-08-14] MEDS ORDERED: THIAMINE HCL 100 MG TAB PO SCH (10:00)
--- NOTE | 2025-08-14 10:31 | DVHDS2 ---
Discharge Summary Date of Admission Aug 10, 2025 at 16:00 Date of Discharge: Aug 14, 2025 Labs/Diagnostic Data: Laboratory Results Test 08/14/25 05:32 08/13/25 16:47 White Blood Count 3.5 10^3/uL (4.4-10.8) Red Blood Count 3.88 10^6/uL (4.5-5.90) Hemoglobin 13.0 g/dL (13.5-17.5) Hematocrit 36.1 % (41.0-53.0) Mean Corpuscular Volume 92.9 fL (80.0-100.0) Mean Corpuscular Hemoglobin 33.4 pg (28.0-32.0) Mean Corpuscular Hemoglobin Concent 36.0 g/dL (32.0-36.0) Red Cell Distribution Width 20.4 % (11.8-14.3) Platelet Count 97 10^3/uL (140-450) Mean Platelet Volume 7.4 fL (6.9-10.8) Neutrophils (%) (Auto) 50.2 % (37.0-80.0) Lymphocytes (%) (Auto) 25.3 % (10.0-50.0) Monocytes (%) (Auto) 19.7 % (0.0-12.0) Eosinophils (%) (Auto) 4.0 % (0.0-7.0) Basophils (%) (Auto) 0.8 % (0.0-2.0) Neutrophils # (Auto) 1.7 10 ^3/uL (1.6-8.6) Lymphocytes # (Auto) 0.9 10 ^3/uL (0.4-5.4) Monocytes # (Auto) 0.7 10 ^3/uL (0-1.3) Eosinophils # (Auto) 0.1 10 ^3/uL (0-0.8) Basophils # (Auto) 0 10 ^3/uL (0-0.2) Nucleated Red Blood Cells 0.2 % Sodium Level 139 mmol/L (136-145) Potassium Level 2.6 mmol/L (3.5-5.1) Chloride Level 102 mmol/L (98-107) Carbon Dioxide Level 26 mmol/L (20-31) Anion Gap 11 (5-15) Blood Urea Nitrogen 9 mg/dL (9-23) Creatinine 0.61 mg/dL (0.700-1.30) Glomerular Filtration Rate Calc 114 mL/min (>90) BUN/Creatinine Ratio 14.8 (10.0-20.0) Serum Glucose 112 mg/dL (74-106) Calcium Level 9.3 mg/dL (8.7-10.4) Total Bilirubin 1.8 mg/dL (0.2-1.0) Aspartate Amino Transferase (AST) 64 U/L (13-40) Alanine Aminotransferase (ALT) 49 U/L (7-40) Alkaline Phosphatase 37 U/L (46-116) Total Protein 7.0 g/dL (5.7-8.2) Albumin 4.0 g/dL (3.2-4.8) Ammonia < 10 umol/L (11-32) Thyroid Stimulating Hormone (TSH) 0.84 uIU/mL (0.55-4.78) Treponema pallidum Antibody Non-reactive (Negative) Other Laboratory Tests 08/14/25 05:32 Brief Hx & Hospital Course: 54-year-old male with unclear past medical history, he denies any past medical history or surgical history. It is difficult to evaluate if patient is altered or just refusing to answer questions. [facility]. He was brought to the hospital due to tremors, shortness of breath, abdominal pain, and hallucinations. Patient can remember that he was started on a seizure medication, but does not know what one. 08/13: Patient is swelling himself, he has been asked to use bedside urinal but does not compliant. It isn't clear what as patient is baseline. We will do more complete workup assuming this is not patient's baseline and he is suffering from some sort of encephalopathy. Acute toxic metabolic encephalopathy could be due to many causes but 1. Suspect remains alcohol possible Wernicke's encephalopathy. We will give IV thiamine 100 mg again, thereafter start D5 [id number] cc an hour continuous. Continue daily 200 p.o. thiamine,1 mg folic p.o.. We will complete workup with TSH, ammonia, trip antibody. Patient did ambulate today thus has potential of using bedside commode etc.. Patient's CIWA score is low, we will stop Librium p.o. 08/14: TSH ammonia treponemal antibody are negative. We continued to do thiamine 100 mg daily and full liquid mg daily. Patient has received 12 hours of D5 half-normal. Remains to be A&O x2 not oriented to time. Only off by 1 year, he keeps saying 2025. Otherwise patient is now ambulating. Alcohol withdrawal has a past, patient is stable, has some baseline tremor CIWA score low. Stable for discharge. See plan below. Diagnosis: Alcohol withdrawal Wernicke's encephalopathy possible Acute toxic metabolic encephalopathy due to above SIRS with AOD due to above Alcohol dependence Thrombocytopenia, likely due to chronic alcohol intoxication poisoning Transaminitis, alcoholic pattern Hyperbilirubinemia , due to below Acute alcoholic hepatitis likely Anion gap metabolic acidosis , resolved Plan: --Continue thiamine 100 mg daily for 1, folic acid 1 mg daily for 14 days -If diarrhea continues, may need further workup with PCP and recheck of potassium. -Encourage ambulation and staying active. Condition at Discharge: Fair Final Diagnosis/Problems List Alcohol withdrawal Wernicke's encephalopathy possible Acute toxic metabolic encephalopathy due to above SIRS with AOD due to above Alcohol dependence Thrombocytopenia, likely due to chronic alcohol intoxication poisoning Transaminitis, alcoholic pattern Hyperbilirubinemia , due to below Acute alcoholic hepatitis likely Anion gap metabolic acidosis , resolved Discharge Disposition: Jail Discharge Instruct/Medications No Active Prescriptions or Reported Meds Discharge Statement: "Patient was advised to return to the ER or call 911 if any headaches, dizziness, shortness of breath, chest pain, abdominal pain, bleeding, fevers, or worsening of medical condition. Patient was counseled about treatment plan, medications, possible side effects, patientverbalized understanding. All questions were answered to the best of my ability. This discharge took greater then 30 minutes in planning, reviewing documentation, counseling the patient, and discussing with other team members." ASSESSMENT ASSESSMENT Assessment Date of Service: Aug 14, 2025 Billing Provider: PAO NOWAK MD Common Visit Codes: [id number] DISCH DAY >30min PAO NOWAK MD Aug 14, 2025 10:31
[2025-08-14] MEDS: POTASSIUM CHL 20 Meq TABLET PO ONE (10:42)
[2025-08-14] MEDS: MULTIPLE VITAMIN TAB PO SCH (10:42)
[2025-08-14] MEDS: FOLIC ACID 1 MG TAB PO SCH (10:42)
[2025-08-14] MEDS: MAGNESIUM OXIDE 400 MG TAB PO SCH (10:43)
[2025-08-14] MEDS: THIAMINE HCL 100 MG TAB PO SCH (10:43)
[2025-08-14] MEDS: POTASSIUM CHLORIDE 40 MEQ, LIDOCAINE 1% (LOCAL ANESTH.) 4 ML in SODIUM CHL 0.9% 250 ML IV ONE (11:00)
[2025-08-14 12:27] VITALS: BP 118/64; PULSE 74; RESP 18; TEMP 97.8; O2SAT 96
[2025-08-14 13:00] VITALS: BP 123/84; PULSE 78; RESP 17; TEMP 98.5; O2SAT 96
== END 2025-08-14 16:10 | DRG 91 ==
LOC: EDBD 09:11 → ER 09:11 → EEVIPCON 09:11 → OVERFLOW 16:00 → EAST 21:57
PROVIDERS: ADMIT Student in an Organized Health Care Education/Training Program; ATTEND Student in an Organized Health Care Education/Training Program
DX: G92.8 Other toxic encephalopathy (principal); R65.11 Systemic inflammatory response syndrome (SIRS) of non-infectious origin with acute organ dysfunction; E87.20 Acidosis, unspecified; E51.2 Wernicke's encephalopathy; D69.59 Other secondary thrombocytopenia; F10.230 Alcohol dependence with withdrawal, uncomplicated; K70.10 Alcoholic hepatitis without ascites; F10.229 Alcohol dependence with intoxication, unspecified; E80.6 Other disorders of bilirubin metabolism; T51.8X1A Toxic effect of other alcohols, accidental (unintentional), initial encounter; Z79.899 Other long term (current) drug therapy; Y92.89 Other specified places as the place of occurrence of the external cause; Y90.9 Presence of alcohol in blood, level not specified
CPT/HCPCS: 36415; 70450; 80048; 80053; 82140; 84443; 85025; 86780; 87081; 96361; 96374; 99291; 99292; G0378; J2003